=== PATIENT | male | born 1960 | race Caucasian/White ===

== ENCOUNTER 2020-05-23 13:24 | Inpatient (IN) | payer MEDICARE ==
[2020-05-23 14:16] LABS: #Lymphocytes 0.7 thou/uL (1.20-3.40); #Monocytes 0.9 thou/uL (0.11-0.59); #Neutrophils 14.9 thou/uL (1.40-6.50); %Eosinophils 0.1 % (0.0-10.0); %Lymphocytes 4.1 % (21.0-51.0); %Monocytes 5.3 % (0.0-10.0); %Neutrophils 90.5 % (42.0-75.0); Hemoglobin 16.6 g/dL (14.0-18.0); Mean Corpuscular HGB CONC 32.7 g/dL (32.0-36.0); Mean Corpuscular Hemoglobin 29.8 pg (27.0-31.0); Mean Corpuscular Volume 91.2 fL (78.0-98.0); Mean Platelet Volume 8.2 fL (7.4-10.4); Platelet Count 283 thou/uL (130-400); RBC Distribution Width 13.8 % (11.5-14.5); Red Blood Cell (RBC) Count 5.56 mill/uL (4.70-6.10); White Blood Cell (WBC) Count 16.5 thou/uL (4.8-10.8)
[2020-05-23 14:18] LABS: Amphetamine Not Detected (NotDetected); Barbiturates Screen Not Detected (NotDetected); Benzodiazepine Screen Detected (NotDetected); Cocaine Metabolite Screen Not Detected (NotDetected); Medtox Control Line Valid? VALID (VALID); Medtox Reader # READER 4; Methadone Not Detected (NotDetected); Methamphetamine Not Detected (NotDetected); Opiate Screen Detected (NotDetected); Oxycodone Screen Detected (NotDetected); Phencyclidine (PCP) Not Detected (NotDetected); THC/Cannabinoid Screen Not Detected (NotDetected); Tricyclic Screen Not Detected (NotDetected)
[2020-05-23 14:25] LABS: Alcohol Less than 10 mg/dL (Less than 10); Salicylate Less than 8.0 mg/dL (15.0-30.0)
[2020-05-23 14:26] LABS: ALT (SGPT) 35 U/L (8-55); AST (SGOT) 35 U/L (5-34); Albumin 4.5 g/dL (3.5-5.0); Alkaline Phosphatase 87 U/L (40-110); Anion Gap 19 mmol/L (10-20); BUN (Urea Nitrogen) 15 mg/dL (8.4-25.7); Bilirubin, Total 0.3 mg/dL (0.2-1.2); Calc. Creatinine Clearance 0 mL/min (70-130); Calcium 9.2 mg/dL (7.8-10.44); Carbon Dioxide 22 mmol/L (22-29); Chloride 103 mmol/L (98-107); Globulin 3.3 g/dL (2.4-3.5); Glucose 102 mg/dL (70-105); Potassium 5.6 mmol/L (3.5-5.1); Protein, Total 7.8 g/dL (6.0-8.3); Sodium 138 mmol/L (136-145)
[2020-05-23] MEDS ORDERED: Naloxone HCl 2 mg/2 ml Syringe ONE (14:33)
[2020-05-23 14:51] LABS: Bilirubin Negative (Negative); Blood, Urine Negative (Negative); Clarity Clear (Clear); Glucose, Urine (Dipstick) Normal (Negative); Ketone, Urine Negative (Negative); Leukocyte Negative Leu/uL (Negative); Nitrite Negative (Negative); Protein, Urine (Dipstick) 20 mg/dL (Neg-Trace); Specific Gravity, Urine 1.029 (1.002-1.036); Urobilinogen Normal mg/dL (Less than 2); pH, Urine 5.5 (5.0-9.0)
[2020-05-23] MEDS ORDERED: Aspirin Chewable 81 MG TAB ONE (15:05)
[2020-05-23 17:57] LABS: Anion Gap 12 mmol/L (10-20); BUN (Urea Nitrogen) 14 mg/dL (8.4-25.7); Calc. Creatinine Clearance 0 mL/min (70-130); Calcium 8.4 mg/dL (7.8-10.44); Carbon Dioxide 25 mmol/L (22-29); Chloride 106 mmol/L (98-107); Glucose 96 mg/dL (70-105); Potassium 4.8 mmol/L (3.5-5.1); Sodium 138 mmol/L (136-145)
[2020-05-23 18:02] LABS: Troponin I 0.283 ng/mL (< 0.028)
[2020-05-23] MEDS ORDERED: Acetaminophen 650 MG Suppository PR PRN (18:37)
[2020-05-23] MEDS ORDERED: Acetaminophen 325 MG TAB PO PRN (18:37)
[2020-05-23] MEDS: Famotidine/PF 20 mg/2ml Vial SLOW IVP SCH (21:45)
[2020-05-23 21:49] VITALS: BMI 25.8
[2020-05-23] MEDS ORDERED: Ondansetron ODT 4 MG TAB SL PRN (23:15)
[2020-05-23] MEDS ORDERED: Sodium Chloride 0.9% 1,000 ML IV SCH (23:15)
[2020-05-23] MEDS ORDERED: Ondansetron PF 4 MG/2 ML Vial IVP PRN (23:15)
[2020-05-24] MEDS: Dextrose 5 %-0.45 % NaCl 1,000 ML IV SCH ×2 (00:03→19:56)
[2020-05-24 00:56] LABS: Lactic Acid 0.9 mmol/L (0.5-2.2)
[2020-05-24 02:23] LABS: CKMB 15.6 ng/mL (0-6.6)
[2020-05-24 03:55] LABS: SARS-CoV-2 PCR by NAA Not Detected (NotDetected)
[2020-05-24 05:31] LABS: #Eosinphils 0.1 thou/uL (0.0-0.7); #Lymphocytes 1.7 thou/uL (1.20-3.40); #Monocytes 0.9 thou/uL (0.11-0.59); #Neutrophils 8.1 thou/uL (1.40-6.50); %Basophils 0.3 % (0.0-1.0); %Eosinophils 0.5 % (0.0-10.0); %Lymphocytes 15.7 % (21.0-51.0); %Monocytes 8.3 % (0.0-10.0); %Neutrophils 75.2 % (42.0-75.0); Hemoglobin 12.9 g/dL (14.0-18.0); Mean Corpuscular HGB CONC 31.4 g/dL (32.0-36.0); Mean Corpuscular Hemoglobin 28.7 pg (27.0-31.0); Mean Corpuscular Volume 91.5 fL (78.0-98.0); Platelet Count 219 thou/uL (130-400); RBC Distribution Width 13.7 % (11.5-14.5); Red Blood Cell (RBC) Count 4.49 mill/uL (4.70-6.10); White Blood Cell (WBC) Count 10.8 thou/uL (4.8-10.8)
[2020-05-24 05:44] LABS: ALT (SGPT) 45 U/L (8-55); AST (SGOT) 58 U/L (5-34); Albumin 3.4 g/dL (3.5-5.0); Alkaline Phosphatase 74 U/L (40-110); Anion Gap 13 mmol/L (10-20); BUN (Urea Nitrogen) 14 mg/dL (8.4-25.7); Bilirubin, Total 0.2 mg/dL (0.2-1.2); CK (CPK) 1555 U/L (30-200); Calc. Creatinine Clearance 115 mL/min (70-130); Carbon Dioxide 25 mmol/L (22-29); Chloride 106 mmol/L (98-107); Globulin 2.5 g/dL (2.4-3.5); Glucose 85 mg/dL (70-105); Potassium 4.6 mmol/L (3.5-5.1); Protein, Total 5.9 g/dL (6.0-8.3); Sodium 139 mmol/L (136-145)
[2020-05-24 06:07] LABS: CKMB 14.8 ng/mL (0-6.6); Critical Call CKMB RESULT DECREASING
[2020-05-24] MEDS: Famotidine/PF 20 mg/2ml Vial SLOW IVP SCH ×2 (08:17→19:56)
[2020-05-24] MEDS ORDERED: Iopamidol 370 76% 100 ML VIAL ONE (12:37)
[2020-05-25] MEDS ORDERED: Lorazepam 2 MG/ML VIAL SLOW IVP SCH (03:15)
[2020-05-25] MEDS: Famotidine/PF 20 mg/2ml Vial SLOW IVP SCH (07:45)
[2020-05-25] MEDS ORDERED: Haloperidol Lactate 5 MG/ML VIAL IM PRN (11:08)
[2020-05-25 11:48] VITALS: TEMP 97.4
[2020-05-25 15:51] VITALS: BP 141/70
== END 2020-05-25 17:44 | disposition home or self-care (01) | DRG 918 ==
LOC: ERS 13:24 → 2NO 15:42
PROVIDERS: ADMIT Internal Medicine; ATTEND Internal Medicine
DX: T40.601A Poisoning by unspecified narcotics, accidental (unintentional), initial encounter (principal); I24.8 Other forms of acute ischemic heart disease; M62.82 Rhabdomyolysis; K82.1 Hydrops of gallbladder; J81.1 Chronic pulmonary edema; T42.4X1A Poisoning by benzodiazepines, accidental (unintentional), initial encounter; F10.10 Alcohol abuse, uncomplicated; F41.9 Anxiety disorder, unspecified; F32.9 Major depressive disorder, single episode, unspecified; M54.2 Cervicalgia; G89.29 Other chronic pain; Z20.822 Contact with and (suspected) exposure to COVID-19; I08.1 Rheumatic disorders of both mitral and tricuspid valves; G47.00 Insomnia, unspecified; Z90.49 Acquired absence of other specified parts of digestive tract
CPT/HCPCS: 36415; 36416; 51701; 70450; 71045; 71275; 80053; 80143; 80306; 80307; 81003; 82553; 83605; 83735; 83880; 84443; 84484; 85025; 85379; 87635; 93005; 93010; 93306; 96374; J2310; Q9967; S0028; U0003; U0005

== ENCOUNTER 2020-09-10 15:56 | Outpatient (CLI) | payer MEDICARE | END 2020-09-10 15:57 | disposition home or self-care (01) | LOC: BICCT 15:56 | PROVIDERS: ATTEND Family Medicine | DX: Z12.2 Encounter for screening for malignant neoplasm of respiratory organs (principal); F17.210 Nicotine dependence, cigarettes, uncomplicated; I25.10 Atherosclerotic heart disease of native coronary artery without angina pectoris; I70.0 Atherosclerosis of aorta | CPT/HCPCS: 71271 ==